=== PATIENT | male | born 1995 | race Caucasian/White ===

== ENCOUNTER 2017-02-10 16:59 | Emergency (ER) | payer OTHER ==
[~2017-02-10] VITALS: Ht 180.3 cm; Wt 86.0 kg
[2017-02-10 17:10] VITALS: Ht 180.3 cm; Wt 86.0 kg
--- NOTE | 2017-02-10 19:25 | ERD ---
ER Documentation Chief Complaint Date/Time DATE: 02/10/17 TIME: 19:22 Chief Complaint 2.5 CM LACERATION ABOVE LT EYE W/ PAIN/SWELLING. TETANUS SHOT 2015 HPI This is a 21 year old male presenting to ER for head injury and laceration today. Patient states he was working underneath his car when suddenly the car dropped on top of him, hitting his head and causing a laceration. Patient now has 2 linear laceration above left eyebrow. Patient states he used alcohol to clean the wound and then came to the ER. Patient denies any loss of consciousness, loss of vision, diplopia, change in vision or blurry vision. Denies headache, nausea, vomiting or neck pain. No slurred speech or facial droop. ROS All systems reviewed and are negative except as per history of present illness. Medications Home Meds Active Scripts Ibuprofen* (Motrin*) 600 Mg Tab, 600 MG PO Q6, #15 TAB Prov:TONY MSITH BORDERER 02/10/17 PMhx/Soc Medical and Surgical Hx: pt denies Surgical Hx History of Surgery: No Anesthesia Reaction: No Hx Neurological Disorder: Yes (EPILEPSY) Hx Respiratory Disorders: No Hx Cardiac Disorders: No Hx Psychiatric Problems: No Hx Miscellaneous Medical Probl: No Hx Alcohol Use: No Hx Substance Use: No Hx Tobacco Use: No Smoking Status: Never smoker Physical Exam Vitals Vital Signs Date Time Temp Pulse Resp B/P Pulse Ox O2 Delivery O2 Flow Rate FiO2 02/10/17 17:10 98.1 63 16 148/81 100 Physical Exam Const: no acute distress Head: no obvious deformity noted Eyes: Normal Conjunctiva ENT: Normal External Ears, Nose and Mouth. Neck: Full range of motion..~ No meningismus. Resp: Clear to auscultation bilaterally Cardio: Regular rate and rhythm, no murmurs Abd: Soft, non tender, non distended. Normal bowel sounds Skin: 2 small linear lacerations to left forehead above left eyebrow. 1st laceration is medially located as is approximately 2.5cm long. 2nd laceration is approximately 1.5cm long. No foreign body noted. draining scant amount of bright red blood. no surrounding erythema or hematoma. Back: No midline or flank tenderness Ext: No cyanosis, or edema Neur: Awake and alert Psych: Normal Mood and Affect Results 24 hrs Current Medications Medications (Trade) Dose Ordered Sig/Shiva Route PRN Reason Start Time Stop Time Status Last Admin Dose Admin Lidocaine (Xylocaine 1% (Mdv) 20 ml) 20 ml ONCE ONCE SC 02/10/17 19:30 02/10/17 19:31 DC Ibuprofen (Motrin) 600 mg ONCE ONCE PO 02/10/17 20:00 02/10/17 20:01 DC 02/10/17 19:58 Procedures/MDM ED COURSE: The patient was stable throughout ED course. I kept the patient and/or family informed of laboratory and diagnostic imaging results throughout the ED course. Imaging CT head Patient: TIM CABRERA : 1995 Age: 21 Sex: M MR #: [id number] DOS: 02/10/17 190 Ordering MD: TONY SMITH NP Location: [facility] Room/Bed: PROCEDURE: CT Brain without contrast. CLINICAL INDICATION: Head injury. TECHNIQUE: A CT of the brain was performed on a multidetector CT scanner utilizing axial sections from the skull base through the vertex without contrast. Images were reviewed on a high-resolution PACS workstation. Exam CTDI = 45.01 mGy and the DLP = 720.23 mGy-cm. One or more of the following dose reduction techniques were used: Automated exposure control Adjustment of the mA and/or kV according to patient size. Use of iterative reconstruction technique. COMPARISON: None available FINDINGS: There is no evidence of intracranial hemorrhage, mass effect or midline shift. No abnormal intra-axial or extra-axial fluid collections are seen. The density of the brain is normal and the mejia/white matter differentiation is well preserved. The osseous structures are unremarkable. The paranasal sinuses are clear. IMPRESSION: 1. No intracranial hemorrhage, mass effect or midline shift. Laceration Repair by me: Anesthesia: 1% lidocaine locally Location: left tenriism above left eyebrow Tendon/Joint/Nerves: No injury Foreign body: None detected after copious irrigation and exploration Technique: 4 Simple Interrupted Sutures to 1st laceration, 2 simple interrupted sutures to 2nd laceration Complexity: No subcutaneous sutures/mucosal repair/ edge excision Post Closure Length: 2.5 cm, 1.5cm Patient's bleeding was easily controlled in the department and there is no indication of anemia. No evidence of compartment syndrome, neurologic injury, vascular injury, open joint, tendon laceration, or foreign body. Patient is appropriate for outpatient follow up. 48 hour wound check. Scar minimization instructions given. MDM: 21 year old male presents to ER after head injury and laceration to left forehead above left eyebrow. Patient was working on his car when his car fell landing on him. Patient denies loss of consciousness. Denies nausea or vomiting. No dizziness or weakness. Denies headache. Patient is alert and oriented to person place and time. No neuro deficits. Patient ambulate in well. Patient speaking in full sentences. CT head reviewed by radiologist as no intracranial hemorrhage, mass effect or midline shift. Vital signs are stable. Last tetanus shot in 2014. Low suspicion for intracranial hemorrhage or subdural hematoma. Diagnosis is head injury and laceration. Patient is appropriate for outpatient management and instructed to follow up in ED in 2 days for wound recheck. Return to ED sooner for any new or worsening symptoms. Patient and patient's family verbalize understanding. Departure Diagnosis: Primary Impression: Laceration Additional Impression: Head injury Encounter type: initial encounter Qualified Code: S09.90XA - Head injury, initial encounter Condition: Stable TONY SMITH NP Feb 10, 2017 19:25
[2017-02-10] MEDS ORDERED: LIDOCAINE 1% (MDV) 20 ML INJ SC ONE (19:30)
--- NOTE | 2017-02-10 19:40 | RADRPT ---
PROCEDURE: CT Brain without contrast. CLINICAL INDICATION: Head injury. TECHNIQUE: A CT of the brain was performed on a multidetector CT scanner utilizing axial sections from the skull base through the vertex without contrast. Images were reviewed on a high-resolution [employer] workstation. Exam CTDI = 45.01 mGy and the DLP = 720.23 mGy-cm. One or more of the following dose reduction techniques were used: Automated exposure control Adjustment of the mA and/or kV according to patient size. Use of iterative reconstruction technique. COMPARISON: None available FINDINGS: There is no evidence of intracranial hemorrhage, mass effect or midline shift. No abnormal intra-ax ial or extra-axial fluid collections are seen. The density of the brain is normal and the mejia/whit e matter differentiation is well preserved. The osseous structures are unremarkable. The paranasal sinuses are clear. IMPRESSION: 1. No intracranial hemorrhage, mass effect or midline shift. RPTAT: QQ .James Gregory MD, MD Date Time Electronically viewed and signed by .James Gregory MD, on 02/10/2017 19:40 .O/
[2017-02-10] MEDS ORDERED: IBUP-1542 PO (19:53)
[2017-02-10] MEDS ORDERED: IBUPROFEN 600 MG TAB PO ONE (20:00)
== END 2017-02-10 20:26 | disposition home or self-care (01) ==
LOC: MERGE 16:59 → FTE 16:59
DX: S09.90XA Unspecified injury of head, initial encounter (principal); W20.8XXA Other cause of strike by thrown, projected or falling object, initial encounter; Y92.9 Unspecified place or not applicable
CPT/HCPCS: 12013; 70450; Z7502; Z7610

== ENCOUNTER 2017-02-12 10:23 | Emergency (ER) | payer OTHER ==
[~2017-02-12] VITALS: Ht 180.3 cm; Wt 87.0 kg
[~2017-02-12 10:23] MED LIST: IBUP-1542 PO
[2017-02-12 10:34] VITALS: Ht 180.3 cm; Wt 87.0 kg
[2017-02-12] MEDS ORDERED: TRIMETHOPRIM/SULFAMETHOX (DS) TAB PO STA (12:18)
[2017-02-12] MEDS ORDERED: CEPHALEXIN 500 MG CAP PO STA (12:18)
[2017-02-12] MEDS ORDERED: CEPH-443 PO (12:25)
[2017-02-12] MEDS ORDERED: SULF1TAB31 PO (12:25)
--- NOTE | 2017-02-12 12:31 | ERD ---
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 Patient states there is minimal pain rating it 4 out of 10. He denies any fevers. Patient states that he has not taken any pain medications. He denies any neuro deficits ROS All systems reviewed and are negative except as per history of present illness. Medications Home Meds Active Scripts Sulfamethoxazole/Trimethoprim* (Bactrim Ds* Tablet) 1 Each Tablet, 1 TAB PO BID , #10 TAB Prov:MAXWELL MEDINA PA-C 02/12/17 Cephalexin* (Keflex*) 500 Mg Capsule, 500 MG PO QID for 5 Days, CAP Prov:MAXWELL MEDINA PA-C 02/12/17 Allergies Allergies: Coded Allergies: No Known Drug Allergy (Verified Allergy, Unknown, 08/27/09) Physical Exam Vitals Vital Signs Date Time Temp Pulse Resp B/P Pulse Ox O2 Delivery O2 Flow Rate FiO2 02/12/17 10:34 98.0 61 20 148/70 98 Physical Exam General: WD/WN, in no apparent distress, non-toxic appearing HENT: NC/AT Eyes: Conjunctiva normal Neck: Supple Pulm: Clear to auscultation, normal labored breathing; no wheezing/rales/ rhonchi heard CV: Good capillary refill GI: Non-distended, no guarding Back: No masses Ext: No clubbing, cyanosis, or edema Neuro: Moves on all fours Skin: Sutures intact on a 2 cm laceration above the left eyebrow however there is some mild drainage with mild erythema, no induration or warmth Normal turgor, color, and temperature. No ulcerations or rashes noted. 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 On examination, the sutures were intact however there was some drainage at the incisional site with erythema, this may be likely an early infection versus normal healing. No evidence of significant facial cellulitis or abscess. In the ED, the laceration was irrigated and new Steri-Strips were applied. Patient was given a dose of Keflex and Bactrim in the ED. A prescription for Keflex and Bactrim was given to him for take for 5 days, I have discussed return to the ER in 5 days for suture removal. Discussed to return sooner for any worsening signs or symptoms. Patient understood and agree with plan Departure Diagnosis: Primary Impression: Infected laceration Additional Impression: Encounter for wound re-check Condition: Stable Patient Instructions: Laceration, Infected Repair Additional Instructions: Return in 5 days for suture removal Take all medicines as directed. Return to this facility if you are not improving as expected. MAXWELL MEDINA PA-C Feb 12, 2017 12:31
== END 2017-02-12 13:01 | disposition home or self-care (01) ==
LOC: FTE 10:23 → MERGE 10:23 → FTE 13:01
DX: T81.4XXA Infection following a procedure, initial encounter (principal); Y62.9 Failure of sterile precautions during unspecified surgical and medical care
CPT/HCPCS: 99284

== ENCOUNTER 2017-02-17 07:16 | Emergency (ER) | payer MEDICAID, OTHER ==
[~2017-02-17] VITALS: Ht 180.3 cm; Wt 85.0 kg
[~2017-02-17 07:16] MED LIST changes: +CEPH-443 PO; +SULF1TAB31 PO
[2017-02-17 07:18] VITALS: Ht 180.3 cm; Wt 85.0 kg
--- NOTE | 2017-02-17 09:56 | ERA ---
ER Documentation Chief Complaint Date/Time DATE: 02/17/17 TIME: 09:53 Chief Complaint suture removal on forehead HPI 21-year-old male patient with no significant past medical history presents to the ED for a suture removal. Patient reports that he has a history of epilepsy and is currently taking Depakote. States that he has 6 sutures noted on his laceration above his left eyebrow. Denies any fever, chills, headache, nausea, vomiting, numbness or tingling, weakness. Patient states that he filled his prescription for Bactrim DS and Keflex and has been taking it consistently. Denies any increased redness, swelling. ROS All systems reviewed and are negative except as per history of present illness. Medications Home Meds Active Scripts Sulfamethoxazole/Trimethoprim* (Bactrim Ds* Tablet) 1 Each Tablet, 1 TAB PO BID , #10 TAB Prov:MAXWELL MEDINA PA-C 02/12/17 Cephalexin* (Keflex*) 500 Mg Capsule, 500 MG PO QID for 5 Days, CAP Prov:MAXWELL MEDINA PA-C 02/12/17 Ibuprofen* (Motrin*) 600 Mg Tab, 600 MG PO Q6, #15 TAB Prov:TONY SMITH NP 02/10/17 Allergies Allergies: Coded Allergies: No Known Drug Allergies (Verified Allergy, Unknown, 02/13/17) No Known Drug Allergy (Verified Allergy, Unknown, 02/13/17) PMhx/Soc History of Surgery: No Anesthesia Reaction: No Hx Neurological Disorder: Yes (EPILEPSY) Hx Respiratory Disorders: No Hx Cardiac Disorders: No Hx Psychiatric Problems: No Hx Miscellaneous Medical Probl: No Hx Alcohol Use: No Hx Substance Use: No Hx Tobacco Use: No Physical Exam Vitals Vital Signs Date Time Temp Pulse Resp B/P Pulse Ox O2 Delivery O2 Flow Rate FiO2 02/17/17 08:02 100 Room Air 02/17/17 07:18 97.8 67 18 124/73 99 Physical Exam Const: [id number], well-nourished. In no acute distress. Head: Atraumatic, normocephalic Eyes: Normal Conjunctiva without injection ENT: Normal external ear, nose and mouth. Neck: Full range of motion. No meningismus. Resp: Clear to auscultation bilaterally. No wheezing, rhonchi, rales, or crackles. No accessory muscle use. No retractions. Cardio: Regular rate and rhythm, no murmurs Skin: No petechiae, purpura. 2 cm laceration noted above the left eyebrow, 1 cm with no fluctuance, induration, erythema, edema. No purulent discharge noted. No tenderness to palpation. A total of 6 sutures noted keeping the laceration intact with no signs of dehiscence. Back: No midline tenderness. No CVA tenderness. Ext: No cyanosis, or edema. Cap refill less than 2 seconds. Distal pulses intact bilaterally. Neur: Awake and alert. Normal gait and coordination. Muscle strength 5/5. Sensation intact bilaterally. Psych: Normal Mood and Affect Procedures/MDM This is a 21-year-old male patient with a past medical history of epilepsy presents the ED for a suture removal of the laceration noted above his left eyebrow. Patient is afebrile nontoxic appearing. Patient has normal vital signs. 6 sutures were removed without any difficulty or complication. No signs of dehiscence, deep space infection, cellulitis, sepsis, or other emergent conditions. Low suspicion for intracranial bleed, subarachnoid hemorrhage, epidural hematoma, subdural hematoma, meningitis, TIA, stroke, or other emergent conditions. Follow up with primary care physician in 1-2 days. Instructed patient to return to the ED sooner for any worsening symptoms. Patient's questions were answered. Patient understood and agreed with discharge plan. Patient discharged stable. Departure Diagnosis: Primary Impression: Encounter for removal of sutures Condition: Stable Patient Instructions: Suture Removal, No Complication Referrals: [facility] YOU HAVE RECEIVED A MEDICAL SCREENING EXAM AND THE RESULTS INDICATE THAT YOU DO NOT HAVE A CONDITION THAT REQUIRES URGENT TREATMENT IN THE EMERGENCY DEPARTMENT. FURTHER EVALUATION AND TREATMENT OF YOUR CONDITION CAN WAIT UNTIL YOU ARE SEEN IN YOUR DOCTORS OFFICE WITHIN THE NEXT 1-2 DAYS. IT IS YOUR RESPONSIBILITY TO MAKE AN APPOINTMENT FOR FOLOW-UP CARE. IF YOU HAVE A PRIMARY DOCTOR --you should call your primary doctor and schedule an appointment IF YOU DO NOT HAVE A PRIMARY DOCTOR YOU CAN CALL OUR PHYSICIAN REFERRAL HOTLINE AT IF YOU CAN NOT AFFORD TO SEE A PHYSICIAN YOU CAN CHOSE FROM THE FOLLOWING [facility] [address] [facility]. [facility] [address] [facility] [facility] [address] [facility] [address] [facility] [address] [facility]. [facility] [address] [facility]. [facility] YOU HAVE RECEIVED A MEDICAL SCREENING EXAM AND THE RESULTS INDICATE THAT YOU DO NOT HAVE A CONDITION THAT REQUIRES URGENT TREATMENT IN THE EMERGENCY DEPARTMENT. FURTHER EVALUATION AND TREATMENT OF YOUR CONDITION CAN WAIT UNTIL YOU ARE SEEN IN YOUR DOCTORS OFFICE WITHIN THE NEXT 1-2 DAYS. IT IS YOUR RESPONSIBILITY TO MAKE AN APPOINTMENT FOR FOLOW-UP CARE. IF YOU HAVE A PRIMARY DOCTOR --you should call your primary doctor and schedule and appointment IF YOU DO NOT HAVE A PRIMARY DOCTOR YOU CAN CALL OUR PHYSICIAN REFERRAL HOTLINE AT . IF YOU CAN NOT AFFORD TO SEE A PHYSICIAN YOU CAN CHOSE FROM THE FOLLOWING [facility] INSTITUTIONS: [facility] [address] [place] [address] [facility] [address] [place] [address] [facility] [address] [place] [address] [facility] URGENT CARE/SPECIALTIES Additional Instructions: Call your primary care doctor TOMORROW for an appointment during the next 2-3 days.See the doctor sooner or return here if your condition worsens before your appointment time. HINA ADAMES PA-C Feb 17, 2017 09:56
== END 2017-02-17 08:02 | disposition home or self-care (01) ==
LOC: FTE 07:16
DX: Z48.02 Encounter for removal of sutures (principal)
CPT/HCPCS: 99281

== ENCOUNTER 2019-05-05 12:41 | Emergency (ER) | payer OTHER ==
[~2019-05-05] VITALS: Ht 180.3 cm; Wt 85.8 kg
[2019-05-05 12:43] VITALS: Ht 180.3 cm; Wt 85.8 kg
[2019-05-05] MEDS ORDERED: BELLADONNA/PHENOBARBITAL TAB PO ONE (13:30)
[2019-05-05] MEDS ORDERED: LIDOCAINE/MYLANTA 40 ML BTL PO ONE (13:30)
[2019-05-05] MEDS ORDERED: FAMO-96 PO (16:53)
[2019-05-05] MEDS ORDERED: ACET-2047 PO (16:53)
[2019-05-05 17:00] VITALS: BP 123/78; PULSE 54; RESP 18
--- NOTE | 2019-05-05 19:46 | ERD ---
ER Documentation Chief Complaint Chief Complaint right sided abdominal pain rad to epigastric region x2-3. Denies NVD HPI History of Present Illness: 23-year-old male who denies a past medical history coming in today with complaint of pain that initially was underneath his right ribs that is now epigastric. Patient reports pain is squeezing and tightness. Patient reports pain is not increased after eating. Denies nausea vomiting diarrhea constipation. At home pharmacological/nonpharmacological treatment for symptoms: Denies Denies social concerns; Denies recent foreign travel ROS All systems reviewed and are negative except as per history of present illness. Medications Home Meds Active Scripts Acetaminophen* (Acetaminophen*) 650 Mg Tablet, 650 MG PO Q6H PRN for PAIN AND OR ELEVATED TEMP, #30 TAB Prov:RADHA GRAVES NP 05/05/19 Famotidine* (Pepcid*) 20 Mg Tablet, 20 MG PO BID for MID-UPPER ABDOMINAL PAIN/BURN, #30 TAB Prov:RADHA GRAVES NP 05/05/19 Sulfamethoxazole/Trimethoprim* (Bactrim Ds* Tablet) 1 Each Tablet, 1 TAB PO BID, #10 TAB Prov:MAXWELL MEDINA PA-C 02/12/17 Cephalexin* (Keflex*) 500 Mg Capsule, 500 MG PO QID for 5 Days, CAP Prov:MAXWELL MEDINA PA-C 02/12/17 Ibuprofen* (Motrin*) 600 Mg Tab, 600 MG PO Q6, #15 TAB Prov:TONY SMITH NP 02/10/17 Allergies Allergies: Coded Allergies: No Known Drug Allergies (Verified Allergy, Unknown, 02/13/17) No Known Drug Allergy (Verified Allergy, Unknown, 02/13/17) PMhx/Soc Medical and Surgical Hx: pt denies Surgical Hx History of Surgery: No Anesthesia Reaction: No Hx Neurological Disorder: Yes (EPILEPSY on depakote) Hx Respiratory Disorders: No Hx Cardiac Disorders: No Hx Psychiatric Problems: No Hx Miscellaneous Medical Probl: No Hx Alcohol Use: Yes (occasional) Hx Substance Use: No Hx Tobacco Use: No Smoking Status: Never smoker FmHx Family History: No diabetes, No coronary disease Physical Exam Vitals Vital Signs Date Temp Pulse Resp B/P (MAP) Pulse Ox O2 O2 Flow FiO2 Time Delivery Rate 05/05/19 97.5 54 18 123/78 100 Room Air 17:00 (93) 05/05/19 98.2 67 20 123/69 99 12:43 (87) Physical Exam Const: No acute distress, afebrile Head: Atraumatic Eyes: Normal Conjunctiva ENT: Normal External Ears, Nose and Mouth. Neck: Full range of motion. No meningismus. Resp: Clear to auscultation bilaterally Cardio: Regular rate and rhythm, no murmurs Abd: Soft, epigastric tenderness, non distended. Bowel sounds present. No guarding, no masses, no rigidity Skin: No petechiae or rashes Back: No midline or flank tenderness Ext: No cyanosis, or edema Neur: Awake and alert x3, speaking in clear sentences, no focal deficits or facial asymmetry Psych: Normal Mood and Affect Results 24 hrs Current Medications Medications Dose Sig/Shiva Start Time Status Last (Trade) Ordered Route PRN Stop Time Admin Dose Reason Admin 40 ml ONCE ONCE 05/05/19 DC 05/05/19 Miscellaneous PO 13:30 13:15 Medication 05/05/19 13:31 (Gi Cocktail (2)) Belladonna/ 1 tab ONCE ONCE 05/05/19 DC Phenobarbital PO 13:30 () 05/05/19 13:31 Procedures/MDM ED COURSE: ED course includes a thorough examination and history. The patient was stable throughout ED course. I kept the patient and/or family informed of laboratory and diagnostic imaging results throughout the ED course. MEDICATIONS GIVEN IN ER: GI cocktail and . Patient tolerated medication well with no adverse reactions. Patient reported complete improvement in pain. DIAGNOSTIC IMAGING: Read by radiologist. Abdomen KUB: IMPRESSION: Nonobstructive bowel gas pattern. RPTAT: JJ Physician Gloria Date Time Electronically viewed and signed by Jatinder Leyva Physician on 05/05/2019 16:46 PROCEDURES: None. MEDICAL DECISION MAKING: Low suspicion for life-threatening medical emergency. Low suspicion for acute a bdominal emergency. Otherwise healthy patient presenting with constellation of symptoms likely representing uncomplicated epigastric pain possibly related to GERD as characterized by history, physical exam findings, radiology findings. Patient reassessment @ 1654: Pain no longer present. Results discussed. Patient hemodynamically stable. No respiratory distress, otherwise relatively well appearing and nontoxic. Disposition given. Patient educated on diagnoses, prescriptions, follow-up care, return precautions. Strict return precautions given for worsening condition; questions answered discharge. Patient verbalizes understanding of discharge instructions. PRESCRIPTIONS FOR HOME: Famotidine acetaminophen DISPOSITION: DISCHARGE At this time, patient is stable for discharge and outpatient management. I have instructed the patient to follow-up with his/her primary care physician in 1-2 days. I have discussed with the patient the possibility of needing to see a specialist for further workup and imaging studies if symptoms persist. I have instructed the patient to promptly return to the ER for any new or worsening symptoms including increased pain, fever, nausea, vomiting, weakness or LOC. The patient and/or family expressed understanding of and agreement with this plan. All questions were answered. Home care instructions were provided. DISCLAIMER: Inadvertent spelling and grammatical errors are likely due to EHR/dictation software use and do not reflect on the overall quality of patient care. Also, luc garcia note that the electronic time recorded on this note does not necessarily reflect the actual time of the patient encounter. Departure Diagnosis: Primary Impression: Epigastric pain Condition: Stable Patient Instructions: Epigastric Pain (Uncertain Cause) Referrals: [facility] YOU HAVE RECEIVED A MEDICAL SCREENING EXAM AND THE RESULTS INDICATE THAT YOU DO NOT HAVE A CONDITION THAT REQUIRES URGENT TREATMENT IN THE EMERGENCY DEPARTMENT. FURTHER EVALUATION AND TREATMENT OF YOUR CONDITION CAN WAIT UNTIL YOU ARE SEEN IN YOUR DOCTORS OFFICE WITHIN THE NEXT 1-2 DAYS. IT IS YOUR RESPONSIBILITY TO MAKE AN APPOINTMENT FOR FOLOW-UP CARE. IF YOU HAVE A PRIMARY DOCTOR --you should call your primary doctor and schedule an appointment IF YOU DO NOT HAVE A PRIMARY DOCTOR YOU CAN CALL OUR PHYSICIAN REFERRAL HOTLINE AT IF YOU CAN NOT AFFORD TO SEE A PHYSICIAN YOU CAN CHOSE FROM THE FOLLOWING [facility] [address] [facility] [address] [facility] [address] [facility] [address] [facility] [address] [facility]. [facility] [address] [facility] YOU HAVE RECEIVED A MEDICAL SCREENING EXAM AND THE RESULTS INDICATE THAT YOU DO NOT HAVE A CONDITION THAT REQUIRES URGENT TREATMENT IN THE EMERGENCY DEPARTMENT. FURTHER EVALUATION AND TREATMENT OF YOUR CONDITION CAN WAIT UNTIL YOU ARE SEEN IN YOUR DOCTORS OFFICE WITHIN THE NEXT 1-2 DAYS. IT IS YOUR RESPONSIBILITY TO MAKE AN APPOINTMENT FOR FOLOW-UP CARE. IF YOU HAVE A PRIMARY DOCTOR --you should call your primary doctor and schedule and appointment IF YOU DO NOT HAVE A PRIMARY DOCTOR YOU CAN CALL OUR PHYSICIAN REFERRAL HOTLINE AT . IF YOU CAN NOT AFFORD TO SEE A PHYSICIAN YOU CAN CHOSE FROM THE FOLLOWING [facility] INSTITUTIONS: [facility] [address] [place] [address] [facility] [address] [place] [address] [facility] [address] [place] [address] Additional Instructions: Thank you very much for allowing us to participate in your care. Your health and safety is our top priority at [facility]. It is important to read all discharge instructions and education provided in your discharge packet. Call your primary care doctor TOMORROW for an appointment during the next 2-4 days and bring all the information and medications prescribed. Have prescriptions filled and follow precisely the directions on the label. --Acetaminophen as a medication for pain and/or fever. Take this medication as needed for mild to moderate pain. This medication will not cause drowsiness. --Famotidine is a medication that will help with acid reflux; take this medication as prescribed for the next 1 to 2 weeks with lunch and dinner. Report to your primary care doctor if the mid upper abdominal pain is no longer present with this medication. If so, it is highly likely that your acid reflux is causing your pain/discomfort. If the symptoms get worse and your provider is unavailable, return to the Emergency Department immediately. RADHA GRAVES NP May 05, 2019 19:46
== END 2019-05-05 17:01 | disposition home or self-care (01) ==
LOC: FTE 12:41
DX: R10.13 Epigastric pain (principal)
CPT/HCPCS: 74019; Z7502; Z7610

== ENCOUNTER 2019-08-08 01:01 | Emergency (ER) | payer OTHER ==
[~2019-08-08] VITALS: Ht 182.9 cm; Wt 86.4 kg
[~2019-08-08 01:01] MED LIST changes: +ACET-2343 PO; +CYCL10TA7 PO; +FAMO-96 PO; +NAPR-985 PO
[2019-08-08 01:03] VITALS: BP 133/74; PULSE 72; RESP 16; Ht 182.9 cm; Wt 86.4 kg
[2019-08-08] MEDS ORDERED: IBUPROFEN 600 MG TAB PO ONE (04:30)
== END 2019-08-08 06:05 | disposition home or self-care (01) ==
LOC: FTE 01:01
DX: M25.571 Pain in right ankle and joints of right foot (principal); M54.2 Cervicalgia; R07.9 Chest pain, unspecified
CPT/HCPCS: 71045; 72040; 73610; Z7502; Z7610